=== PATIENT | female | born 1985 | race Caucasian/White ===

== ENCOUNTER 2016-11-07 18:08 | Emergency (ER) | payer MEDICAID ==
[~2016-11-07 18:08] MED LIST: DARVOCET-N 1001 TAB PO; FLAGYL250 MG; LEVAQUIN250 MG PO; NO HOME MEDS.; PRENATAL1 TAB
[2016-11-07] MEDS ORDERED: NO HOME MEDICATION XX (18:30)
[2016-11-07 18:38] LABS: URINE BILIRUBIN NEGATIVE (NEG); URINE BLOOD MODERATE (NEG); URINE GLUCOSE (UA) NEGATIVE (NEG); URINE KETONE NEGATIVE (NEG); URINE LEUKOCYTE ESTERASE POSITIVE (NEG); URINE NITRITE POSITIVE (NEG); URINE PROTEIN MODERATE (NEG)
[2016-11-07 18:43] LABS: URINE APPEARANCE HAZY; URINE COLOR YELLOW
[2016-11-07 18:46] LABS: URINE BACTERIA 3+; URINE MUCUS 1+; URINE WBC FULL FIELD /[HPF] (0-5)
[2016-11-07] MEDS ORDERED: KEFLEX500 M4 PO (18:48)
== END 2016-11-07 18:45 ==
LOC: EDMED 18:08
PROVIDERS: Emergency Medicine
DX: N39.0 Urinary tract infection, site not specified (principal); F17.200 Nicotine dependence, unspecified, uncomplicated

== ENCOUNTER 2017-01-01 18:42 | Emergency (ER) | payer MEDICAID ==
[~2017-01-01 18:42] MED LIST changes: +KEFLEX500 M4 PO; +NO HOME MEDICATION XX
[2017-01-01] MEDS ORDERED: NAPROSYN500 M1 PO (19:44)
== END 2017-01-01 19:50 ==
LOC: EDMED 18:42
DX: M25.561 Pain in right knee (principal); F17.210 Nicotine dependence, cigarettes, uncomplicated